=== PATIENT | female | born 2000 | race Caucasian/White ===

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

== ENCOUNTER 2022-04-12 15:30 | Outpatient (CLI) | payer MEDICAID | END 2022-04-12 15:45 | disposition home or self-care (01) | LOC: LAB.N 15:30 | PROVIDERS: ATTEND Physician Assistant | DX: Z11.1 Encounter for screening for respiratory tuberculosis (principal) | CPT/HCPCS: 81599; 86480 ==

== ENCOUNTER 2023-04-29 17:48 | Emergency (ER) | payer MEDICAID ==
[2023-04-29 17:58] VITALS: O2SAT 98
--- NOTE | 2023-04-29 18:15 | ED Physician Documentation ---
History of Present Illness - Stated complaint Stated Complaint: FEVER - Chief complaint Chief Complaint: General - History obtained from History obtained from: Patient - Additonal information Additional information: Otherwise healthy young woman with no possibility of has had a cough for 9 days which is productive of sputum. She has had fevers for almost a week now with a Tmax of 103 at home. She has body aches, resolved epistaxis this morning, headaches and eye pressure bilaterally. 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 PD PAST MEDICAL HISTORY - Past Medical History Past Medical History: Yes Cardiovascular: None Respiratory: None Neuro: None Endocrine/Autoimmune: None GI: None AUTOMOTIVE ARTIST: None HEENT: None Psych: Anxiety Musculoskeletal: None Derm: None - Past Surgical History Past Surgical History: No - Present Medications Home Medications: Ambulatory Orders Medication Instructions Recorded Confirmed dexAMETHasone [Decadron] 4 mg PO DAILY #5 tablet 09/18/22 Buspirone HCl 15 mg PO BID 04/29/23 04/29/23 Deblitane 0.35 mg PO DAILY 04/29/23 04/29/23 Dextroamphetamine/Amphetamine 10 mg PO DAILY 04/29/23 04/29/23 [Adderall 10 mg Tablet] PARoxetine HCL [Paxil] 30 mg PO DAILY 04/29/23 04/29/23 - Allergies Allergies/Adverse Reactions: Allergies Allergy/AdvReac Type Severity Reaction Status Date / Time Penicillins AdvReac Rash Verified 04/29/23 17:53 - Social History Does the pt smoke?: No Smoking Status: Never smoker Does the pt drink ETOH?: No Does the pt have substance abuse?: No - Immunizations Immunizations are current?: Yes - POLST Patient has POLST: No PD ED PE NORMAL - Vitals Vital signs reviewed: Yes - General General: Alert and oriented X 3, No acute distress - HEENT HEENT: Pharynx benign - Neck Neck: Supple, no meningeal sign, No bony TTP - Cardiac Cardiac: RRR, No murmur - Respiratory Respiratory: No respiratory distress, Clear bilaterally Results - Vitals Vitals: Vital Signs - 24 hr 04/29/23 04/29/23 04/29/23 17:53 17:55 18:52 Temperature 37.4 C 37.4 C Heart Rate 100 100 101 H Respiratory 16 16 18 Rate Blood Pressure 140/69 H 140/69 H 122/74 O2 Saturation 98 98 98 Oxygen O2 Source Room air - Rads (name of study) 2v cxr- NAD Relevant Findings:: Final report received, EMP independent interpretation of test PD Medical Decision Making - ED course ED course: She presents with symptoms that are most consistent with a nonspecific viral syndrome, but given the length of time and the cough an x-ray was done despite clear lungs to rule out pneumonia and this was negative. She was discharged with viral panel pending and discussed with her how to look up results, but at this point conservative care would be recommended regardless of the etiology. No evidence of bacterial illness. She is nontoxic. No meningismus. No urinary complaints. Departure - Departure Disposition: 01 Home, Self Care Clinical Impression: Viral syndrome Condition: Good Record reviewed to determine appropriate education?: Yes Instructions: ED Viral Syndrome Comments: Your chest x-ray is normal, no pneumonia. The remainder of your symptoms are consistent with a viral process such as flu or COVID. We are checking for both, the results will take a couple of hours. We will call you if it is COVID, but otherwise you can look up the results by going to the [email or web address] website, Click on "my openPeople," and sign up for the hospital patient portal. Otherwise take Tylenol and/or ibuprofen as needed for aches and pains. Drink plenty of fluid and rest. Return if worse. Follow-up with your doctor midweek if not improving. Forms: PCP List Discharge Date/Time: 04/29/23 18:52
--- NOTE | 2023-04-29 18:40 | XRAY Report ---
PROCEDURE: Chest 2V INDICATIONS: cough TECHNIQUE: 2 views of the chest were acquired. COMPARISON: None. FINDINGS: Surgical changes and devices: None. Lungs and pleura: No pleural effusions or pneumothorax. Lungs are clear. Mediastinum: Mediastinal contours appear normal. Heart size is normal. Bones and chest wall: No suspicious bony lesions. Overlying soft tissues appear unremarkable. IMPRESSION: No acute cardiopulmonary process. No focal infiltrates are seen. Reviewed by: Parminder Packer MD on 04/29/2023 5:38 PM [facility] Approved by: Parminder Packer MD on 04/29/2023 5:38 PM [facility] Station ID: [id number]
[2023-04-29 19:00] VITALS: BP 122/74
[2023-04-29 19:22] LABS: B. PARAPERTUSSIS- RESP PCR PAN NOT DETECTED; B. PERTUSSIS- RESP PCR PANEL NOT DETECTED; C. PNEUMONIAE- RESP PCR PANEL NOT DETECTED; CORONAVIRUS 229E-RESP PCR NOT DETECTED; CORONAVIRUS HKU1-RESP PCR NOT DETECTED; CORONAVIRUS NL63-RESP PCR NOT DETECTED; CORONAVIRUS OC43-RESP PCR NOT DETECTED; HUMAN METAPNEUMOVIRUS NOT DETECTED; INFLUENZA A- RESP PCR PANEL NOT DETECTED; INFLUENZA B - RESP PCR PANEL NOT DETECTED; M. PNEUMONIAE- RESP PCR PANEL NOT DETECTED; PARAINFLUENZA VIRUS 1 NOT DETECTED; PARAINFLUENZA VIRUS 2 NOT DETECTED; PARAINFLUENZA VIRUS 3 NOT DETECTED; PARAINFLUENZA VIRUS 4 NOT DETECTED; RHINOVIRUS/ENTEROVIRUS NOT DETECTED; RSV- RESP PCR PANEL NOT DETECTED; SARS-CoV-2 -RESP PCR PANEL NOT DETECTED
== END 2023-04-29 18:52 | disposition home or self-care (01) ==
LOC: ED 17:48
DX: B34.9 Viral infection, unspecified (principal)
CPT/HCPCS: 87633; 99283; 99284